=== PATIENT | female | born 1985 | race Caucasian/White ===

== ENCOUNTER 2025-01-18 08:04 | Outpatient (REF) | payer OTHER, SELFPAY ==
--- OUTSIDE RECORDS SUMMARY | 2025-01-18 08:09 | XMS_ITS ---
Author Organization [facility] Address [address] [place] [address] Care Team Providers Care Brick Burner Head Name Role Phone Tamika Adele COREAS Primary Care Provider Unavail able Black, Angie Unavailable [phone] REASON FOR VISIT refurb OTs Encounters Encounter Location Date Provider Diagnosis [facility] [address] [place] [address] 08/14/2023 Angie Black Plan Of Treatment No Information Progress Notes * Tara GUZMANDOB:1985 (38 yo F)Acc No.[id number]:08/14/2023 Patient:?Tara Guzman :1985???Age:38 Y???Sex:Female Address:[address] [place], [address] * true * Date:? Generated for Printi liam/Solange/eTransmitting on:?01/18/2025 08:09 AM EDT
--- OUTSIDE RECORDS SUMMARY | 2025-01-18 08:09 | XMS_ITS | Clinical Summary ---
Author Organization [facility] Address [address] [place] [address] Care Team Providers Care Power Distribution Engineer Name Role Phone Corina Walker ANGEL Primary Care Provider [phone] Source Comments PLEASE NOTE, if this patient is a minor, it may be UNLAWFUL to discuss sensitive information that is contained in these records (such as FAMILY PLANNING, MENTAL HEALTH or SUBSTANCE ABUSE) with the minor patient's parent or other person without the patient's specific authorization.[facility] Allergies No known active allergies Medications L-Norgest&E Estradiol-E Estrad 0.15 mg-30 mcg (84)/10 mcg (7) 3MPk TAKE 1 TABLET(S) EVERY DAY BY ORAL ROUTE FOR 91 DAYS. 3 6 Active montelukast (SINGULAIR) 10 mg tablet Take 10 mg by mouth once daily 0 6 Active FLUVIRIN 8815-4651 45 mcg (15 mcg x 3)/0.5 mL susp ADM 0.5ML IM UTD 0 6 Active PROAIR RESPICLICK 90 mcg/actuation aepb Inhale 2 Inhalation into the lungs every 4 (four) hours as needed (SOB/Wheezing) 1 Each 1 8 Active fluticasone propionate (FLOVENT HFA) 110 mcg/actuation inhalerIndication s:Hx of extrinsic asthma,Chest tightness,Mild intermittent asthma, unspecified whether complicated ([facility]) Inhale 1 Puff into the lungs 2 (two) times daily 1 Inhaler 1 9 Active Active Problems Problem Noted Date Diagnosed Date Uses control 09/06/2016 Hx of extrinsic asthma 09/06/2016 Overview (09/06/2016): Induced by cat dander Hx of bilateral breast reduction surgery 016 Family History Medical History Relation Name Comments Stroke Father Relation Name Status Comments Father Social History Tobacco Use Types Packs/Day Years Used Date Smoking Tobacco: Never Smokeless Tobacco: Never Alcohol Use Standard Drinks/Week Comments Yes 0 (1 standard drink = 0.6 oz pur e alcohol) socially Social Connections Answer Date Recorded Social Connections and Isolation 0 05/09/2019 Financial Resource Strain Answer Date R ecorded Financial Resource Strain 0 2018 Stress Answer Date Recorded Stress 0 05/09/2019 Physical Activity Answer Date Recorded Physical Activity 0 05/09/2019 Food Insecurity Answer Date Recorded Food 0 05/09/2019 Transportation Needs Answer Date Record ed Transportation 0 05/09/2019 Housing Stability Answer Date Recorded Housing 0 05/09/2019 Safety and Environment Answer Date Eran rded Safety 0 05/09/2019 Utilities Answer Date Recorded Utilities 0 05/09/2019 Employment Answer Date Recorded Employment 0 05/09/2019 Comments No Sex and Gender Information Value Date Recorded Sex Assigned at Female 04/15/2018 2:09 PM PDT Legal Sex Female 12:06 PM PDT Gender Identity Female 04/15/2018 2:09 PM PDT Sexual Orientation Straight 04/15/2018 2: 09 PM PDT Last Filed Vital Signs Vital Sign Reading Time Taken Comments Blood Pressure 98/64 05/28/2019 3:19 PM EDT Pulse 100 06/26/2018 9:42 AM EDT Temperature 36.6 ??C (97.8 ??F) 06/26/2018 9:42 AM ED T Respiratory Rate 18 05/28/2019 3:19 PM EDT Oxygen Saturation - - Inhaled Oxygen Concentration - - Weight 60.8 kg (134 lb) 05/28/2019 3:19 PM EDT Height 163.5 cm (5' 4.37 ) 06/26/2018 9:42 AM ED T Body Mass Index 22.74 06/26/2018 9:42 AM EDT Plan of Treatment Not on file Insurance [employer] [facility] Care Teams Power Distribution Engineer Relationship Specialty Start Date End Date Corina Walker FNP [address] [place] [address] PCP - General Family Medicine, SH[employer]TLE [employer]AN [employer]IVER 06/26/16
--- OUTSIDE RECORDS SUMMARY | 2025-01-18 08:09 | XMS_ITS | Patient Health Record ---
Author Organization [facility] Address [address] [facility] [place] [address] Care Team Providers Care Hospitality Team Member Name Role Phone Tamika Adele COREAS Primary Care Provider Unavail able Black, Angie Unavailable [phone] Allergies Allergen (clinical drug ingredient) Drug/Non Drug Allergy documented on EMR Reaction Allergy Type Onset Date Status Adhesive skin irritation Allergy Acti ve Reason For Referral No Information Medications Medication SIG (Take, Route, Frequency, Duration) Notes Start Date End Date Status Biotin 5000 MCG 1 capsule Orally Onc e a day for 30 day(s) Active Custom Orthotics as directed 05/30/2022 Active Vitamin D 25 MCG (1000 UT) 1 tablet Orally Once a day for 30 day(s) Active Flovent HFA 110 MCG/ACT 2 puffs Inhalation Twice a day Active Iron 60mg Active Magnesium 400 MG as directed Orally Active Vitamin C 1000 MG 1 tablet Orally Once a day for 30 day(s) Active Zinc 50 MG 1 tablet Orally Once a day for 30 day(s) Active Omeprazole 20 MG 1 capsule 30 minutes before morning meal Orally Once a day for 30 day(s) Active Albuterol Active Cetirizine HCl 10 MG 1 tablet Orally Onc e a day for 30 day(s) Active quiNINE Sulfate Cinchona, 1000mg Active Social History Tobacco Use: Social History Observation Description Date Details (start date - stop date) Never Smoker NA - NA Tobacco Use/Smoking Question Answer Notes Are you a: nonsmoker Additional Findings: Tobacco Non-User Current no n-smoker Alcohol Screen Question Answer Notes Did you have a drink contain ing alcohol in the past year? Yes How often did you have a dri nk containing alcohol in the past year? Monthly or less (1 point) Points 1 Interpretation Negative Tobacco use other than smoking: Question Answer Notes Are you an other tobacco user? No Problems Problem Type SNOMED Code ICD Code Onset Dates Problem Status W/U Status Risk Notes Problem 390675828 Pronation deformity of left foot (M21.6X2) Active confirmed Problem 161539326 Pronation deformity of right foot (M21.6X1) Active confirmed Plan Of Treatment No Information Insurance Providers Payer Name Payer Address Payer Phone Subscriber Number Group Number Insured Name Patient Relationship to Insured Coverage Start Date Coverage End Date [employer] [address] [place] [address] [id number] Tripp Junior Spouse - patient is the spouse of the insured Medical (General) History Medical History History ICD Code Anemia asthma Back,Hip,and Knee pain Reflux ( GERD) Warts Chicken pox Surgical History Surgery Date(Month/Year) breast reduction 09/11/2009 sinus surgery 09/02/2019
--- NOTE | 2025-01-18 08:14 | EMG_ITS ---
Bilateral median and ulnar motor and sensory studies were performed. Bilateral radial sensory studies were performed. Bilateral median and lateral antecubital brachial sensory studies were performed, and paraspinal muscles were tested with a needle. IMPRESSION: 1. Mild bilateral ulnar neuropathy across cubital tunnel. 2. Mild right median neuropathy across carpal tunnel. MD DWAYNE Saldana/MCKENNA / [id number]
== END 2025-01-18 08:05 | disposition home or self-care (01) ==
LOC: HO.NEURO 08:04
PROVIDERS: PCP Nurse Practitioner Family; Visit Provider Nurse Practitioner Family
DX: R22.33 Localized swelling, mass and lump, upper limb, bilateral (principal); G56.23 Lesion of ulnar nerve, bilateral upper limbs; G56.01 Carpal tunnel syndrome, right upper limb
CPT/HCPCS: 95886; 95913